=== PATIENT | male | born 1995 | race Caucasian/White ===

== ENCOUNTER → 2017-11-20 | Outpatient (REF) | payer MEDICAID ==
[2017-11-20 20:18] LABS: APPEARANCE, URINE CLEAR (CLEAR); BACTERIA, URINE AUTO NEGATIVE (NEGATIVE); BILIRUBIN, URINE AUTO NEGATIVE (NEGATIVE); BLOOD, URINE BLOOD NEGATIVE (NEGATIVE); COLOR, URINE YELLOW (YELLOW); GLUCOSE, URINE (UA) AUTO NEGATIVE (NEGATIVE); KETONE, URINE AUTO NEGATIVE (NEGATIVE); LEUKOCYTE ESTERASE, URINE AUTO NEGATIVE (NEGATIVE); MUCUS, URINE SMALL (NEGATIVE); NITRITE, URINE AUTO NEGATIVE (NEGATIVE); PROTEIN, URINE AUTO NEGATIVE (NEGATIVE); RBC, URINE AUTO 1 /HPF (0-3); SPECIFIC GRAVITY URINE AUTO 1.024 (1.002-1.035); SQUAMOUS EPITHELIAL CELL UR AU 0 /HPF (0-6); UROBILINOGEN, URINE AUTO 0.2 mg/dL (0.0-2.0); WBC, URINE AUTO 1 /HPF (0-3)
[2017-11-20 21:25] LABS: CHLAMYDIA DNA AMPLIFICATION NEGATIVE (NEGATIVE); GC DNA AMPLIFICATION NEGATIVE (NEGATIVE)
== END ==
LOC: M LAB REF 17:02
DX: N39.0 Urinary tract infection, site not specified (principal)

== ENCOUNTER 2018-09-06 13:29 | Day surgery (SDC) | payer OTHER ==
[~2018-09-06] VITALS: Ht 193 cm; Wt 98.9 kg
[~2018-09-06 13:29] MED LIST: NS 1,000 ML IV SCH; PANT40TA3 PO
[2018-09-06] MEDS ORDERED: AMOX500C PO (14:46)
[2018-09-06] MEDS ORDERED: AMOX250C PO (14:46)
[2018-09-06] MEDS ORDERED: PROPOFOL 200 MG/20 ML VIAL As Ordered ONE (15:25)
[2018-09-06] MEDS ORDERED: fentaNYL 100 MCG/2 ML INJECTION (J3010) As Ordered ONE (15:40)
[2018-09-06] MEDS ORDERED: LIDOCAINE 2% INJ 100 MG/5 ML SDV (FOR ANES.) As Ordered ONE (15:40)
--- NOTE | 2018-09-06 15:57 | ROOR ---
Patient Name: Callum Villarreal Procedure Date: 09/06/2018 3:34 PM Date of : 1995 Age: 23 Room: [facility] Gender: Male Note Status: Finalized Procedure: Upper GI endoscopy Indications: Suspected esophageal reflux, Hematemesis Providers: Mark HERRERA MD Referring MD: 1. No Referring Physician 1. No Referring Physician, Admin. Requesting Provider: Medicines: Monitored Anesthesia Care Complications: No immediate complications. Procedure: Pre-Anesthesia Assessment: - The heart rate, respiratory rate, oxygen saturations, blood pressure, adequacy of pulmonary ventilation, and response to care were monitored throughout the procedure. The Endoscope was introduced through the mouth, and advanced to the second part of duodenum. The upper GI endoscopy was accomplished without difficulty. The patient tolerated the procedure well. Findings: The Z-line was irregular and was found 41 cm from the incisors. This was biopsied with a cold forceps for histology. Mucosal changes including longitudinal furrows and punctate white spots were found in the entire esophagus. Biopsies were obtained from the proximal and distal esophagus with cold forceps for histology of suspected eosinophilic esophagitis. Small Hiatal Hernia. The exam was otherwise without abnormality. Impression: - Z-line irregular, 41 cm from the incisors. Biopsied. - Esophageal mucosal changes suggestive of reflux esohagitis vs eosinophilic esophagitis. Biopsied. - Small Hiatal Hernia. - The examination was otherwise normal. Recommendation: - Continue present medications. - Telephone endoscopist for pathology results in 2 weeks. - Observe patient's clinical course. Mark Herrera MD Mark HERRERA MD 09/06/2018 3:56:42 PM Electronically signed by Mark HERRERA MD Number of Addenda: 0 Note Initiated On: 09/06/2018 3:34 PM Estimated Blood Loss: Estimated blood loss: none.
[2018-09-06 16:20] VITALS: BP 133/89
== END 2018-09-06 16:23 | disposition home or self-care (01) ==
LOC: M OPP 13:29
PROVIDERS: ATTEND Internal Medicine Gastroenterology
DX: K22.8 Other specified diseases of esophagus (principal); K21.9 Gastro-esophageal reflux disease without esophagitis; K92.0 Hematemesis; K44.9 Diaphragmatic hernia without obstruction or gangrene
CPT/HCPCS: 43239; 88305; J3010

== ENCOUNTER → 2020-12-13 | Outpatient (CLI) | payer OTHER, MEDICAID ==
[~2020-12-13] MED LIST changes: +AMOX250C PO; +AMOX500C PO; -NS 1,000 ML IV SCH; +PANT40TA29 PO; -PANT40TA3 PO
[2020-12-13 17:20] LABS: HIV 1&2 SCREEN CENTAUR NEGATIVE (NEGATIVE)
[2020-12-13 18:30] LABS: GC DNA AMPLIFICATION NEGATIVE (NEGATIVE)
[2020-12-15 20:08] LABS: HSV IgM TYPES 1&2 <0.91 Ratio (0.00-0.90); HSV TYPE I IgG SPECIFIC <0.91 index (0.00-0.90); HSV TYPE II IgG SPECIFIC <0.91 index (0.00-0.90)
== END ==
LOC: M WUC 13:24
PROVIDERS: ATTEND Physician Assistant
DX: Z11.3 Encounter for screening for infections with a predominantly sexual mode of transmission (principal)

== ENCOUNTER 2022-06-15 23:28 | Emergency (ER) | payer BC, MEDICAID, OTHER ==
[~2022-06-15] VITALS: Ht 190.5 cm; Wt 103.2 kg
[2022-06-15] MEDS ORDERED: IBUP200C28 PO (23:39)
[2022-06-15] MEDS ORDERED: OMEP40CA5 PO (23:39)
[2022-06-16 02:37] VITALS: BP 125/72
== END 2022-06-16 02:42 | disposition home or self-care (01) ==
LOC: M ED 23:28
DX: S00.93XA Contusion of unspecified part of head, initial encounter (principal); V00.321A Fall from snow-skis, initial encounter; Y92.410 Unspecified street and highway as the place of occurrence of the external cause; Z79.83 Long term (current) use of bisphosphonates; Z79.1 Long term (current) use of non-steroidal anti-inflammatories (NSAID)

== ENCOUNTER 2023-09-10 10:00 | Day surgery (SDC) | payer BC ==
[~2023-09-10] VITALS: Ht 190.5 cm; Wt 106.9 kg
[2023-09-10] MEDS: NS 1,000 ML IV ONE (06:00)
[~2023-09-10 10:00] MED LIST changes: +IBUP200C28 PO; +LIDOCAINE 2% 100MG/5ML SDV (FOR ANES.) As Ordered ONE; +OMEP-173 PO; +OMEP40CA5 PO; +propofoL 200 MG/20 ML VIAL As Ordered ONE
[2023-09-10] MEDS ORDERED: fentaNYL 100 MCG/2 ML INJECTION As Ordered ONE (10:38)
[2023-09-10 11:38] VITALS: TEMP 97
[2023-09-10 12:00] VITALS: BP 124/71; O2SAT 100
== END 2023-09-10 12:10 | disposition home or self-care (01) ==
LOC: M OPP 10:00
PROVIDERS: ATTEND Internal Medicine Gastroenterology
DX: K22.89 Other specified disease of esophagus (principal); K20.0 Eosinophilic esophagitis; K44.9 Diaphragmatic hernia without obstruction or gangrene; Z79.1 Long term (current) use of non-steroidal anti-inflammatories (NSAID); Z79.899 Other long term (current) drug therapy
CPT/HCPCS: 43239; 88305; J3010